=== PATIENT | male | born 1955 | race Caucasian/White ===

== ENCOUNTER 2022-11-04 13:35 | Emergency (ER) | payer OTHER, BC ==
[~2022-11-04] VITALS: Ht 182.9 cm; Wt 96.2 kg
[~2022-11-04 13:35] MED LIST: ASPI81CH PO; ATOR80 PO; CLOP75 PO; METO25 PO; NITR.4SL SL; Prinivil10 MG PO; SYNTHROID25 MCG PO
[2022-11-04 15:33] LABS: BASOPHILS ABSOLUTE AUTO 0.01 K/mm3 (0.00-0.23); BASOPHILS PERCENT AUTO 0 % (0-2); EOSINOPHILS ABSOLUTE AUTO 0.01 K/mm3 (0.00-0.68); EOSINOPHILS PERCENT AUTO 0 % (0-6); Hematocrit 40.6 % (37.0-53.0); Hemoglobin 13.9 g/dL (13.5-17.5); IMMATURE GRAN ABSOLUTE AUTO 0.03 K/mm3 (0.00-0.10); IMMATURE GRAN PERCENT AUTO 0 % (0-1); LYMPHOCYTES PERCENT AUTO 7 % (21-46); MONOCYTES ABSOLUTE AUTO 0.76 K/mm3 (0.16-1.47); MONOCYTES PERCENT AUTO 8 % (4-13); Mean Corpuscular HGB 29.9 pg (26.0-34.0); Mean Corpuscular HGB Conc 34.2 g/dL (31.5-36.5); Mean Corpuscular Volume 87 fL (80-100); NEUTROPHILS ABSOLUTE AUTO 8.65 K/mm3 (1.96-9.15); NEUTROPHILS PERCENT AUTO 85 % (41-73); Platelet Count 177 K/mm3 (150-400); RDW Coefficient Variation 12.9 % (11.7-14.2); RDW Standard Deviation 41.2 fL (35.1-46.3); Red Blood Cell Count 4.65 M/mm3 (4.30-5.90); White Blood Cell Count 10.16 K/mm3 (4.00-11.30)
[2022-11-04 15:59] LABS: Albumin, Blood 3.4 g/dL (3.4-5.0); Albumin/Globulin Ratio 0.9 (0.8-1.8); Bilirubin, Total 1.3 mg/dL (0.1-1.0); Bun/Creatinine Ratio 15.7 (12.0-20.0); Calcium, Blood 8.9 mg/dL (8.5-10.1); Creatinine, Blood 0.7 mg/dL (0.60-1.20); Globulin, Blood 3.8 g/dL (2.2-4.0); Potassium, Blood 3.8 mmol/L (3.5-5.5); Total Protein, Blood 7.2 g/dL (6.4-8.2)
== END 2022-11-04 19:03 | disposition short-term general hospital (02) ==
LOC: ER 13:35
PROVIDERS: Emergency Medicine
DX: K81.9 Cholecystitis, unspecified (principal); I71.40 Abdominal aortic aneurysm, without rupture, unspecified; I10 Essential (primary) hypertension; I25.10 Atherosclerotic heart disease of native coronary artery without angina pectoris; E78.5 Hyperlipidemia, unspecified; M10.9 Gout, unspecified; G47.33 Obstructive sleep apnea (adult) (pediatric); Z79.899 Other long term (current) drug therapy; Z79.82 Long term (current) use of aspirin; Z79.02 Long term (current) use of antithrombotics/antiplatelets
CPT/HCPCS: 71045; 80053; 83690; 84484; 85025; 93005; 93010; 96365; 96375; 96376; 99285-25; J0694; J1170; J2405; J7120

== ENCOUNTER 2023-01-03 00:27 | Inpatient (IN) | payer OTHER ==
[2023-01-03] VITALS (74 sets, daily range): BP systolic 79–116; BP diastolic 53–81
[~2023-01-03] VITALS: Ht 182.9 cm; Wt 84.2 kg
[2023-01-03 00:55] LABS: BASOPHILS ABSOLUTE AUTO 0.04 K/mm3 (0.00-0.23); BASOPHILS PERCENT AUTO 1 % (0-2); EOSINOPHILS ABSOLUTE AUTO 0.18 K/mm3 (0.00-0.68); EOSINOPHILS PERCENT AUTO 3 % (0-6); Hematocrit 27.2 % (37.0-53.0); Hemoglobin 8.4 g/dL (13.5-17.5); IMMATURE GRAN ABSOLUTE AUTO 0.03 K/mm3 (0.00-0.10); IMMATURE GRAN PERCENT AUTO 0 % (0-1); LYMPHOCYTES ABSOLUTE AUTO 1.56 K/mm3 (0.84-5.20); LYMPHOCYTES PERCENT AUTO 23 % (21-46); MONOCYTES ABSOLUTE AUTO 0.49 K/mm3 (0.16-1.47); MONOCYTES PERCENT AUTO 7 % (4-13); Mean Corpuscular HGB 28.7 pg (26.0-34.0); Mean Corpuscular HGB Conc 30.9 g/dL (31.5-36.5); Mean Corpuscular Volume 93 fL (80-100); Mean Platelet Volume 10.5 fL (9.1-12.4); NEUTROPHILS ABSOLUTE AUTO 4.57 K/mm3 (1.96-9.15); NEUTROPHILS PERCENT AUTO 67 % (41-73); Platelet Count 317 K/mm3 (150-400); RDW Coefficient Variation 14.6 % (11.7-14.2); Red Blood Cell Count 2.93 M/mm3 (4.30-5.90); White Blood Cell Count 6.87 K/mm3 (4.00-11.30)
[2023-01-03 01:32] LABS: International Normalized Ratio 1.08; Prothrombin Time Results 11.3 Sec (9.7-11.5)
[2023-01-03 01:50] LABS: Albumin, Blood 2.3 g/dL (3.4-5.0); Albumin/Globulin Ratio 0.7 (0.8-1.8); Bilirubin, Total 0.7 mg/dL (0.1-1.0); Bun/Creatinine Ratio 39.6 (12.0-20.0); Calcium, Blood 8.3 mg/dL (8.5-10.1); Creatinine, Blood 0.94 mg/dL (0.60-1.20); Globulin, Blood 3.2 g/dL (2.2-4.0); Potassium, Blood 4.8 mmol/L (3.5-5.5); Total Protein, Blood 5.5 g/dL (6.4-8.2)
[2023-01-03] MEDS ORDERED: ALLOPURINOL100 M1 PO (02:30)
[2023-01-03 05:40] LABS: BASOPHILS ABSOLUTE AUTO 0.02 K/mm3 (0.00-0.23); BASOPHILS PERCENT AUTO 0 % (0-2); EOSINOPHILS ABSOLUTE AUTO 0.04 K/mm3 (0.00-0.68); EOSINOPHILS PERCENT AUTO 1 % (0-6); Hematocrit 28.7 % (37.0-53.0); Hemoglobin 9.4 g/dL (13.5-17.5); IMMATURE GRAN ABSOLUTE AUTO 0.04 K/mm3 (0.00-0.10); IMMATURE GRAN PERCENT AUTO 1 % (0-1); LYMPHOCYTES ABSOLUTE AUTO 0.83 K/mm3 (0.84-5.20); LYMPHOCYTES PERCENT AUTO 12 % (21-46); MONOCYTES PERCENT AUTO 6 % (4-13); Mean Corpuscular HGB 28.7 pg (26.0-34.0); Mean Corpuscular HGB Conc 32.8 g/dL (31.5-36.5); Mean Platelet Volume 10.4 fL (9.1-12.4); NEUTROPHILS ABSOLUTE AUTO 5.76 K/mm3 (1.96-9.15); NEUTROPHILS PERCENT AUTO 81 % (41-73); Platelet Count 277 K/mm3 (150-400); RDW Standard Deviation 47.2 fL (35.1-46.3); Red Blood Cell Count 3.27 M/mm3 (4.30-5.90); White Blood Cell Count 7.09 K/mm3 (4.00-11.30)
[2023-01-03 05:56] LABS: Mean Corpuscular Volume 88 fL (80-100)
[2023-01-03 06:26] LABS: Albumin, Blood 2.3 g/dL (3.4-5.0); Albumin/Globulin Ratio 0.8 (0.8-1.8); Bilirubin, Total 1.5 mg/dL (0.1-1.0); Bun/Creatinine Ratio 57.1 (12.0-20.0); Calcium, Blood 8.2 mg/dL (8.5-10.1); Creatinine, Blood 0.79 mg/dL (0.60-1.20); Globulin, Blood 2.9 g/dL (2.2-4.0); Total Protein, Blood 5.2 g/dL (6.4-8.2)
--- NOTE | 2023-01-03 06:43 | NUR ---
PATIENT TO ICU 2 FROM ER AT 0500. PATIENT IS ALERT AND ORIENTED X4. 02 SATS 97% ON RA, DENIES SOB. HR ST 105, BP STABLE TO HYPOTENSIVE, 2 UNITS PRBCs GIVEN PER ER REPORT AND FLUIDS INF. PATIENT AND ER STATES COFFEE GROUND EMESIS. NO BM WHILE HERE BUT PATIENT STATES BLACK TARRY STOOL AT HOME. PATIENT ABLE TO USE URINAL. INDPENDENT WITH REPOSITIONING. CALL LIGHT IN REACH.
[2023-01-03 12:25] LABS: Hemoglobin 8.8 g/dL (13.5-17.5)
--- NOTE | 2023-01-03 17:29 | NUR ---
SHIFT SUMMARY NO ACUTE CHANGES THIS SHIFT. PT HAS REMAINED ALERT AND ORIENTED WHEN AWAKE. PT HAS DENIED PAIN OR DISCOMFORT. PT HAS COMPLAINED OF NAUSEA AT TIMES. PT MED PER EMAR. PT WITHOUT ANY EPISODES OF EMESIS THIS SHIFT. PT WITH LARGE BLACK TARRY STOOL THIS SHIFT. LR INFUSING AT 125 ML/HR AND PROTONIX AT 10 ML/HR. PT USES URINAL TO VOID. PT REPOSITIONS SELF IN BED INDEPENDENTLY. PT FAMILY AT BEDSIDE THIS AFTERNOON. AWAITING VISIT FROM DR CEVALLOS TO DISCUSS PLAN OF CARE THIS EVENING. VITAL SIGNS STABLE. WILL CONTINUE TO MONITOR AND REPORT OFF TO ONCOMING RN.
[2023-01-03 18:35] LABS: Hematocrit 26.4 % (37.0-53.0); Hemoglobin 8.6 g/dL (13.5-17.5)
--- NOTE | 2023-01-03 19:35 | NUR ---
ASSUMED CARE AT 1900 PATIENT IS ALERT AND ORIENTED X4. 02 SATS 99% IN RA, DENIES SOB. RT TO ROOM WITH CPAP, WILL BE SET UP AT BEDTIME. HR SR 90s, BP STABLE, DENIES CP/PRESSURE. MEDICATED FOR NAUSEA PER EMAR. PATIENT TOLERATING ICE CHIPS AND SIPS OF WATER. USES URINAL. INDEPENDENT WITH REPOSITIONING.
[2023-01-04] VITALS (43 sets, daily range): BP systolic 88–118; BP diastolic 52–76
[2023-01-04 03:12] LABS: BASOPHILS ABSOLUTE AUTO 0.02 K/mm3 (0.00-0.23); BASOPHILS PERCENT AUTO 0 % (0-2); EOSINOPHILS ABSOLUTE AUTO 0.16 K/mm3 (0.00-0.68); EOSINOPHILS PERCENT AUTO 3 % (0-6); Hematocrit 23.6 % (37.0-53.0); Hemoglobin 7.6 g/dL (13.5-17.5); IMMATURE GRAN ABSOLUTE AUTO 0.04 K/mm3 (0.00-0.10); IMMATURE GRAN PERCENT AUTO 1 % (0-1); LYMPHOCYTES ABSOLUTE AUTO 1.67 K/mm3 (0.84-5.20); LYMPHOCYTES PERCENT AUTO 27 % (21-46); MONOCYTES ABSOLUTE AUTO 0.43 K/mm3 (0.16-1.47); MONOCYTES PERCENT AUTO 7 % (4-13); Mean Corpuscular HGB 28.7 pg (26.0-34.0); Mean Corpuscular HGB Conc 32.2 g/dL (31.5-36.5); Mean Corpuscular Volume 89 fL (80-100); Mean Platelet Volume 10.3 fL (9.1-12.4); NEUTROPHILS ABSOLUTE AUTO 3.93 K/mm3 (1.96-9.15); NEUTROPHILS PERCENT AUTO 63 % (41-73); Platelet Count 252 K/mm3 (150-400); RDW Coefficient Variation 15.7 % (11.7-14.2); RDW Standard Deviation 50.4 fL (35.1-46.3); Red Blood Cell Count 2.65 M/mm3 (4.30-5.90); White Blood Cell Count 6.25 K/mm3 (4.00-11.30)
[2023-01-04 03:30] LABS: Albumin, Blood 2.2 g/dL (3.4-5.0); Anion Gap 4 mmol/L (6-16); Blood Urea Nitrogen 37 mg/dL (8-24); Bun/Creatinine Ratio 38.4 (12.0-20.0); CO2, Blood 27 mmol/L (21-32); Calcium, Blood 8.1 mg/dL (8.5-10.1); Chloride, Blood 113 mmol/L (98-108); Creatinine, Blood 0.96 mg/dL (0.60-1.20); Glomerular Filtration Rate 88 (60-); Glucose, Blood 112 mg/dL (70-99); Phosphorus, Blood 2.9 mg/dL (2.5-4.9); Potassium, Blood 4.2 mmol/L (3.5-5.5); Sodium, Blood 144 mmol/L (136-145)
--- NOTE | 2023-01-04 05:58 | NUR ---
SHIFT SUMMARY PATIENT IS ALERT AND ORIENTED X4. 02 SATS 95% ON RA, WORE CPAP WHILE SLEEPING. HR SR 85, BP STABLE. USES URINAL. SLEPT MOST THE NIGHT. INDEPENDENT WITH REPOSITIONING. FLUIDS AND PROTONIX INF. CALL LIGHT IN REACH.
[2023-01-04 08:32] LABS: Percent Saturation 37.4 % (20.0-50.0)
[2023-01-04 14:06] LABS: Hematocrit 22.4 % (37.0-53.0); Hemoglobin 7.1 g/dL (13.5-17.5)
--- NOTE | 2023-01-04 17:15 | NUR ---
SHIFT SUMMARY NO ACUTE CHANGES THIS SHIFT. PT HAS REMAINED AWAKE, ALERT, AND ORIENTED. PT DENIES PAIN OR DISCOMFORT. PT DENIES NAUSEA. PT TAKING ICE CHIPS WELL. LR INFUSING AT 100 ML/HR AND PROTONIX AT 10 ML/HR. PT USES URINAL INDEPENDENTLY. PT WITHOUT ANY EMESIS OR BM THIS SHIFT. VITAL SIGNS STABLE. PLANS FOR EGD TOMORROW. WILL CONTINUE TO MONITOR AND REPORT OFF TO ONCOMING RN.
--- NOTE | 2023-01-04 19:09 | NUR ---
TRANSFER NOTE TRANSFER TO UNIT FROM ICU 2. OBTAINED REPORT FROM REE [place] RN. ARRIVED TO ROOM IN BED, SLIDE TRANSFERRED. ALERT, ORIENTED. ADMITTED FOR UPPER GI BLEED AND HYPOTENSION. BP IN ROOM 108 SYSTOLIC, NSR IN 80S ON TELE, SATTING WELL ON RA. PROTONIX GTT RUNNING. PLAN IS FOR AN UPPER ENDO TOMORRO 01/05/[address] CEVALLOS, WATER AND ICE CHIPS AT THIS TIME. NPO AFTER MIDNIGHT. PER REPORT WHEN UP TO BSC TODAY SBA FOR PIVOT PATIENT STATED HE WAS LIGHT-HEADED. TRANSFUSED WITH 2 UNITS PRBC ON ADMISSION, H&H HAVE BEEN TRENDING DOWN SINCE. HGB NOW 7.1. REQUIRES CPAP AT NIGHT.
[2023-01-05] VITALS (19 sets, daily range): BP systolic 116–159; BP diastolic 66–84
[2023-01-05 03:27] LABS: BASOPHILS ABSOLUTE AUTO 0.02 K/mm3 (0.00-0.23); BASOPHILS PERCENT AUTO 0 % (0-2); EOSINOPHILS ABSOLUTE AUTO 0.18 K/mm3 (0.00-0.68); EOSINOPHILS PERCENT AUTO 4 % (0-6); Hemoglobin 6.4 g/dL (13.5-17.5); IMMATURE GRAN ABSOLUTE AUTO 0.03 K/mm3 (0.00-0.10); IMMATURE GRAN PERCENT AUTO 1 % (0-1); LYMPHOCYTES ABSOLUTE AUTO 0.96 K/mm3 (0.84-5.20); LYMPHOCYTES PERCENT AUTO 19 % (21-46); MONOCYTES ABSOLUTE AUTO 0.34 K/mm3 (0.16-1.47); MONOCYTES PERCENT AUTO 7 % (4-13); Mean Corpuscular HGB 28.6 pg (26.0-34.0); Mean Corpuscular Volume 89 fL (80-100); Mean Platelet Volume 10.2 fL (9.1-12.4); NEUTROPHILS ABSOLUTE AUTO 3.46 K/mm3 (1.96-9.15); NEUTROPHILS PERCENT AUTO 69 % (41-73); Platelet Count 194 K/mm3 (150-400); RDW Coefficient Variation 15.5 % (11.7-14.2); RDW Standard Deviation 50.2 fL (35.1-46.3); Red Blood Cell Count 2.24 M/mm3 (4.30-5.90); White Blood Cell Count 4.99 K/mm3 (4.00-11.30)
[2023-01-05 03:44] LABS: Albumin, Blood 2.2 g/dL (3.4-5.0); Anion Gap 7 mmol/L (6-16); Blood Urea Nitrogen 23 mg/dL (8-24); Bun/Creatinine Ratio 26.8 (12.0-20.0); CO2, Blood 25 mmol/L (21-32); Calcium, Blood 7.7 mg/dL (8.5-10.1); Chloride, Blood 111 mmol/L (98-108); Creatinine, Blood 0.86 mg/dL (0.60-1.20); Glomerular Filtration Rate 96 (60-); Glucose, Blood 89 mg/dL (70-99); Phosphorus, Blood 3.4 mg/dL (2.5-4.9); Potassium, Blood 3.9 mmol/L (3.5-5.5); Sodium, Blood 143 mmol/L (136-145)
--- NOTE | 2023-01-05 05:50 | NUR ---
SHIFT SUMMARY ASSUMED CARE OF PT AT 1900. PT IS A/OX4. HEART SOUNDS REGULAR. LUNG SOUNDS CLEAR. PT WORE HOME CPAP DURING THE NOC. PT HAD BLACK STOOL SMEAR ON TIANA. PT SLEPT T/O THE NOC. PT HBG THIS AM WAS LOW AT 6.4. HOSPITALIST NOTIFED AND PT RECEIVED UNIT OF BLOOD.
--- NOTE | 2023-01-05 09:16 | NUR ---
AM NOTE: PT ALERT AND ORIENTED X4. ABLE TO ANSWER QUESTIONS AND MAKE NEEDS KNOWN. PT RECEIVED A UNIT OF PRBC'S, WHICH WAS INFUSING DURING CHANGE OF SHIFT, WITH NO COMPLICATIONS. DR. REID AT THE BEDSIDE AND PUT IN ORDERS FOR F/U H&H. PT SBP 130'S, HR 80'S. NO C/O CHEST PAIN OR PRESSURE. PT DENIES ANY ABDOMINAL PAIN, OR N/V. PT ABLE TO USE THE URINAL INDEPENDENTLY. PT HAS PROTONIX GTT INFUSING CONTINUOUSLY AT 10ML/HR. PT ALSO HAS LR INFUSING AT 100 ML/HR. PLAN FOR SCOPE THIS AFTERNOON. WILL CONTINUE TO MONITOR T/O THE SHIFT.
[2023-01-05 10:13] LABS: Hematocrit 24.1 % (37.0-53.0)
--- NOTE | 2023-01-05 13:43 | NUR ---
01/05/23 1343 Tacho Sloan History, Chart, Medications and Allergies reviewed before start of procedure.MONITOR INTACT WITH CONTINUOUS PULSE OXIMETRY, CONTINUOUS END TITAL CO2, AND INTERMITTENT BLOOD PRESSURE.3-LEAD EKG REVIEWED WITH PHYSICIAN PRIOR TO START OF PROCEDURE.O2 VIA POM INTACT THROUGHOUT SEDATION/PROCEDURE.See Anesthesia record.
--- NOTE | 2023-01-05 18:09 | NUR ---
SHIFT SUMMARY: NO ACUTE EVENTS T/O THE SHIFT. PT CONTINUES TO REMAIN ALERT AND ORIENTED X4. PLEASANT AND COOPERATIVE WITH CARE. PT WENT FOR HIS ENDOSCOPY THIS AFTERNOON, NO INTERVENTION WAS DONE. PER DR. CEVALLOS PT TRANSITIONED OFF THE PROTONIX GTT AND SWITCHED TO PO PROTONIX WITH FIRST DOSE GIVEN AT 1800. PT RESTARTED ON HIS LR AT 100 ML/HR. PT ABLE TO EAT DINNER WITH NO C/O N/V. SBP IN THE 130'S WITH HR IN THE 80'S. PT DENIES ANY CHEST PAIN, PRESSURE OR SOB. PT REFUSED A SHOWER THIS AFTERNOON D/T BEING TIRED. WILL TRY AGAIN TOMORROW. PT ABLE TO AMBULATE TO THE BATHROOM WITH A MINIMAL ASSIST. PT AT THE BEDSIDE T/O THE SHIFT WITH FREQUENT UPDATES ON HIS PLAN OF CARE GIVEN. WILL CONTINUE TO MONITOR AND GIVE REPORT TO THE ONCOMING NOC SHIFT RN.
[2023-01-06 03:17] VITALS: BP 152/75
[2023-01-06 03:55] LABS: Hematocrit 22.5 % (37.0-53.0); Hemoglobin 7.5 g/dL (13.5-17.5)
[2023-01-06 04:12] LABS: Albumin, Blood 2.2 g/dL (3.4-5.0); Anion Gap 6 mmol/L (6-16); Blood Urea Nitrogen 14 mg/dL (8-24); Bun/Creatinine Ratio 15.8 (12.0-20.0); CO2, Blood 28 mmol/L (21-32); Calcium, Blood 8.2 mg/dL (8.5-10.1); Chloride, Blood 109 mmol/L (98-108); Creatinine, Blood 0.89 mg/dL (0.60-1.20); Glomerular Filtration Rate 95 (60-); Glucose, Blood 91 mg/dL (70-99); Phosphorus, Blood 3.2 mg/dL (2.5-4.9); Potassium, Blood 3.8 mmol/L (3.5-5.5); Sodium, Blood 143 mmol/L (136-145)
--- NOTE | 2023-01-06 04:30 | NUR ---
SHIFT SUMMARY PT IS A/Ox4 AND COOPERATIVE WITH CARE PROVIDED BY [facility]BERS OF STAFF. ANSWERS QUESTIONS APPROPRIATELY AND ABLE TO MAKE HIS NEEDS KNOWN. NO ACUTE EVENTS OVERNIGHT FOR PT WAS ABLE TO SLEEP T/O MOST OF THE NIGHT. NO REPORTS OF NAUSEA OR VOMITING LAST NIGHT. PT REPORTS SOME INTERMITTENT ABD PAIN/ACHE ON HIS RIGHT SIDE (3-4/10). BS PRESENT AND ACTIVE IN ALL QUADRANTS, ABD SOFT TO PALPATION. CARDIAC ALEXIS, REMAINS IN SR 80-90'S WITH NO C/O CP OR PRESSURE T/O THE NIGHT. SBP REMAINS STABLE. RESPIRATORY ALEXIS, MAINTAINS SPO2 >90% ON RA WITH NO SOB OR DYSPNA REPORTED. ABLE TO IND. USE URINAL AT BEDSIDE AND OR STAND PIVOT TO BSC. PT RECIEVED 1 UNIT OF PRBC'S YESTERDAY DAY AM. Hgb HAS SINCE CONTINUED TO TREND DOWN TO 7.5 THIS AM. PER DAYSHIFT REPORT, POSSIBLE DC THIS AM 6/. NO ORDERS AT THIS TIME, WILL REPORT TO ONCOMING RN. ADILSON LEDESMA OF THIS NOTE.
[2023-01-06 07:13] VITALS: BP 143/69
--- NOTE | 2023-01-06 08:47 | NUR ---
AM NOTE: PT ALERT AND ORIENTED X4. ABLE TO ANSWER QUESTIONS AND MAKE NEEDS KNOWN. PT VSS SBP 140'S WITH HR IN THE 80'S. PT DENIES ANY CHEST PAIN/ PRESSURE OR SOB. PT DENIES ANY N/V. PT ABLE TO AMBULATE TO THE BATHROOM WITH A 1P ASSIST. PT CONTINUES TO HAVE BLACK, TARRY BOWEL MOVEMENTS. PT HAS LR INFUSING AT 100 ML/HR. PT HGB 7.5 THIS AM. PLANS FOR A REPEAT H&H PER DR. REID. PLANS FOR D/C THIS AFTERNOON IF PT REMAINS STABLE. WILL CONTINUE TO MONITOR T/O THE SHIFT.
[2023-01-06 11:04] LABS: Hematocrit 23.3 % (37.0-53.0); Hemoglobin 7.7 g/dL (13.5-17.5)
[2023-01-06 11:21] VITALS: BP 136/67
[2023-01-06] MEDS ORDERED: PANT20 PO (11:56)
--- NOTE | 2023-01-06 13:37 | NUR ---
DISCHARGE SUMMARY: PT RECEIVED ONE TIME DOSE OF PLAVIX 75MG PER DR. REID BEFORE DISCHARGING HOME. PT AT THE BEDSIDE FOR DISCHARGE INSTRUCTIONS. PT SENT HOME WITH DISCHARGE PACKET. PT MEDICATIONS FAXED TO [facility] ON [address]. PT LEFT VIA WHEELCHAIR WITH . PT INSTRUCTED TO RETURN TO THE ER IF ANY COMPLICATIONS OR BLEEDING REOCCUR. ALL BELONGINGS SENT HOME WITH THE PT.
== END 2023-01-06 13:30 | disposition home or self-care (01) | DRG 377 ==
LOC: ER 00:27 → ICUE 00:28 → PCU 00:28 → ERHOLD 00:28 → ICUE 05:00 → PCU 01-04 18:17
PROVIDERS: Emergency Medicine; Family Medicine; Internal Medicine; Internal Medicine Gastroenterology; ADMIT Internal Medicine
PROC: 5A09357 Assistance with Respiratory Ventilation, Less than 24 Consecutive Hours, Continuous Positive Airway Pressure (ICD-10-PCS; 2023-01-03)
PROC: 30233N1 Transfusion of Nonautologous Red Blood Cells into Peripheral Vein, Percutaneous Approach (ICD-10-PCS; 2023-01-03)
PROC: 0DB68ZX Excision of Stomach, Via Natural or Artificial Opening Endoscopic, Diagnostic (ICD-10-PCS; principal; 2023-01-05 09:00)
DX: K31.82 Dieulafoy lesion (hemorrhagic) of stomach and duodenum (principal); R57.8 Other shock; D62 Acute posthemorrhagic anemia; N28.0 Ischemia and infarction of kidney; I25.10 Atherosclerotic heart disease of native coronary artery without angina pectoris; E78.5 Hyperlipidemia, unspecified; G47.33 Obstructive sleep apnea (adult) (pediatric); E03.9 Hypothyroidism, unspecified; E88.09 Other disorders of plasma-protein metabolism, not elsewhere classified; K31.89 Other diseases of stomach and duodenum; M10.9 Gout, unspecified; L90.5 Scar conditions and fibrosis of skin; I10 Essential (primary) hypertension; Z98.890 Other specified postprocedural states; Z87.891 Personal history of nicotine dependence; Z79.82 Long term (current) use of aspirin; Z79.02 Long term (current) use of antithrombotics/antiplatelets; Z95.5 Presence of coronary angioplasty implant and graft; I25.2 Old myocardial infarction; Z79.899 Other long term (current) drug therapy; Z86.010 Personal history of colon polyps; Z90.49 Acquired absence of other specified parts of digestive tract; Z86.79 Personal history of other diseases of the circulatory system; Z99.89 Dependence on other enabling machines and devices; Z79.811 Long term (current) use of aromatase inhibitors
CPT/HCPCS: 36415; 36430; 74174; 80053; 80069; 82271; 82607; 82728; 82746; 83540; 83550; 85014; 85018; 85025; 85610; 85730; 86850; 86900; 86901; 86920; 86923; 93005; 93010; 94660; 94762; 96361; 96365; 96375; 96376; 99285-25; A9270; C9113; J2405; J2704; J7030; J7120; P9016; Q9967

== ENCOUNTER 2023-08-14 12:35 | Day surgery (SDC) | payer OTHER ==
[~2023-08-14] VITALS: Ht 182.9 cm; Wt 97.4 kg
[~2023-08-14 12:35] MED LIST changes: +ALLOPURINOL100 M1 PO; +ASCORBIC ACID500 MG PO; -ASPI81CH PO; +ASPIR 8181 M1 PO; +B-12500 MC2 PO; +Calcium Carbon500 MG PO; +Echinacea500 MG PO; +MAGNESIUM PO; +OMEGA-3 FISH O1 EA13 PO; +PANT20 PO; +PRAZ1; -SYNTHROID25 MCG PO; +SYNTHROID50 MC1; +VITAMIN B-625 MG PO; +VITAMIN D5000 UNIT PO
[2023-08-14] MEDS ORDERED: ALLO100 (13:06)
--- NOTE | 2023-08-14 15:51 | NUR ---
08/14/23 1551 Carrillo Frank IV REMOVED INTACT. SITE WNL.
[2023-08-14 15:53] VITALS: BP 121/77
== END 2023-08-14 15:45 | disposition home or self-care (01) ==
LOC: ORSCSDS 12:35
PROVIDERS: Internal Medicine Gastroenterology
PROC: 0DBK8ZX Excision of Ascending Colon, Via Natural or Artificial Opening Endoscopic, Diagnostic (ICD-10-PCS; principal; 2023-08-14 14:00)
PROC: 0DBP8ZX Excision of Rectum, Via Natural or Artificial Opening Endoscopic, Diagnostic (ICD-10-PCS; principal; 2023-08-14 14:00)
DX: Z12.11 Encounter for screening for malignant neoplasm of colon (principal); Z86.010 Personal history of colon polyps; D12.2 Benign neoplasm of ascending colon; K62.1 Rectal polyp; I10 Essential (primary) hypertension; I25.10 Atherosclerotic heart disease of native coronary artery without angina pectoris; I25.2 Old myocardial infarction; E03.9 Hypothyroidism, unspecified; G47.33 Obstructive sleep apnea (adult) (pediatric); Z79.899 Other long term (current) drug therapy; Z79.02 Long term (current) use of antithrombotics/antiplatelets
CPT/HCPCS: 88305; J2704; J7120